=== PATIENT | female | born 1945 | race Caucasian/White ===

== ENCOUNTER 2016-10-08 01:15 | Inpatient (IN) | payer OTHER, BC ==
[~2016-10-08] VITALS: Ht 160 cm; Wt 68.9 kg
[~2016-10-08 01:15] MED LIST: ADVAIR HFA120 INHALA IH; ALBUTEROL2.5 MG/3 M IH; ALDACTONE25 MG PO; AMLODIPINE BESYL5 MG PO; ASPIR 8181 M1 PO; ASPIR-LOW81 MG PO; ASPIRIN E.C.81 M1 PO; AZITHROMYCIN500 M1 PO; Advair HFA 115/21 IH; CARDIZEM CD,CA180 MG PO; CARVEDILOL25 MG PO; CEFTIN500 MG PO; COLACE100 MG PO; COQ-10100 MG PO; COREG25 M1 PO; COREG25 MG PO; COUMADIN,JANTOVE4 MG PO; COUMADIN2 MG PO; COUMADIN3 MG PO; COUMADIN4 MG PO; CRANBERRY300 MG PO; CRANBERRY450 M1 PO; CRANBERRY500 M1 PO; CRANBERRY500 M2 PO; DAILY VALUE1 EACH PO; DIGITEK250 MC2 PO; DIGITEK250 MCG PO; DIGOXIN125 MCG PO; EVISTA60 MG PO; FUROSEMIDE80 MG PO; GLIPIZIDE10 M1 PO; GLIPIZIDE10 MG PO; GLUCOPHAGE1000 MG PO; K-DUR10 MEQ PO; K-DUR20 MEQ PO; LANOXIN,DIGI0.125 MG PO; LANOXIN250 MCG PO; LANTUS 10100 UNITS/ SC; LANTUS 3 M100 UNITS/ SC; LANTUS 3 M100 UNITS1 SC; LASIX80 MG PO; LEVAQUIN500 MG PO; LEVEMIR FL100 UNIT/1 SC; LISINOPRIL40 MG PO; LORAZEPAM0.5 MG PO; METFORMIN HCL1000 MG PO; METRONIDAZOLE500 MG PO; MICRO-K10 ME2 PO; MUCINEX600 MG PO; NEXIUM40 MG PO; NITROSTAT0.4 MG SL; NORVASC5 MG PO; PLAVIX75 MG PO; PREDNISONE20 MG PO; PREDNISONE50 MG PO; PROAIR HFA8.5 GM IH; PROAIR RESPICL90 MCG IH; PROVENTIL,2.5 MG/3 M IH; SIMVASTATIN80 MG PO; SLOW RELEASE I160 MG PO; SPIRIVA RESPIMAT4 GM IH; SPIRONOLACTONE25 MG PO; TYLENOL EXTRA500 MG PO; TYLENOL REGULA325 MG PO; VENTOLIN HFA18 GM IH; WARFARIN SODIUM2 MG PO; WARFARIN SODIUM4 MG PO; ZESTRIL,PRINIVI40 MG PO; ZITHROMAX TRI-500 MG PO; ZOCOR80 M1 PO; ZOCOR80 MG PO
[2016-10-08 01:56] LABS: HEMATOCRIT 35.3 % (36.0-46.0); MCH 24.9 PG (29.0-34.0); MCHC 31.2 G/DL (30.0-36.0); MEAN PLAT.VOLUME 10.2 uM^3 (9.5-12.4); PLATELET COUNT 355 K/uL (156-360); RBC DIS.WIDTH-CV 15.8 % (11.8-14.6); RBC DIS.WIDTH-SD 45.7 % (39-53); RED BLOOD COUNT 4.41 M/uL (3.80-5.20); WHITE BLOOD COUNT 14.3 K/uL (4.1-10.2)
[2016-10-08 02:06] LABS: CHLORIDE 100 mEq/L (99-109); POTASSIUM 3.6 mEq/L (3.7-5.4); SODIUM 137 mEq/L (136-147)
[2016-10-08 02:09] LABS: ANION GAP 11 MEQ/L (2-14)
[2016-10-08 02:12] LABS: GFR ESTIMATE (CALCULATED) 39 mL/min/
[2016-10-08 02:14] LABS: GLUCOSE 324 mg/dL (70-99)
[2016-10-08 02:15] LABS: UREA NITROGEN (BUN) 20 mg/dL (9-23)
[2016-10-08 02:25] LABS: INTER. NORMALIZED RATIO 1.2; PTT 26.1 (25-32)
[2016-10-08 02:34] LABS: TROP-I INTERPRETATION NEGATIVE; TROPONIN-I 0.02 ng/mL (0.0-0.30)
[2016-10-08] MEDS ORDERED: VENTOLIN HFA18 GM IH (03:39)
[2016-10-08] MEDS ORDERED: AUGMENTIN875 MG PO (03:39)
[2016-10-08] MEDS ORDERED: EVISTA60 MG PO (05:34)
[2016-10-08] MEDS ORDERED: ELIQUIS5 MG PO (05:44)
[2016-10-08] MEDS ORDERED: LORAZEPAM0.5 MG PO (05:44)
[2016-10-08] MEDS ORDERED: NASONEX17 GM BOTH NARES (05:44)
[2016-10-08] MEDS ORDERED: CARDIZEM CD,CA120 MG PO (05:45)
[2016-10-08 07:45] VITALS: BP 145/65
[2016-10-08 11:03] VITALS: BP 168/77
[2016-10-08 15:39] VITALS: BP 140/61
[2016-10-08 19:25] VITALS: BP 148/65
[2016-10-08 22:02] LABS: POINT-OF-CARE METER ID UU14162508
[2016-10-08 23:11] VITALS: BP 141/63
[2016-10-09 03:36] VITALS: BP 160/70; BP 173/71
[2016-10-09 06:39] LABS: EOSINOPHIL (%) 0.5 % (0-5); EOSINOPHIL COUNT 0.1 K/uL (0-0.3); HEMATOCRIT 33.1 % (36.0-46.0); IMMATURE GRANULOCYTE (%) 0.6 % (0.0-0.7); IMMATURE GRANULOCYTE COUNT 0.1 K/uL; INSTRUMENT ABS NEUTROPHIL CT 13.8 K/uL; LYMPHOCYTE COUNT 1.5 K/uL (1.0-2.8); MCH 24.7 PG (29.0-34.0); MCHC 30.5 G/DL (30.0-36.0); MCV 80.9 FL (83-99); MEAN PLAT.VOLUME 10.1 uM^3 (9.5-12.4); MONOCYTE (%) 6.5 % (3-12); MONOCYTE COUNT 1.1 K/uL (0-0.8); NEUTROPHIL (%) 83.1 % (45-76); NEUTROPHIL COUNT 13.8 K/uL (1.8-6.4); PLATELET COUNT 390 K/uL (156-360); RBC DIS.WIDTH-CV 16.1 % (11.8-14.6); RBC DIS.WIDTH-SD 47.7 % (39-53); RED BLOOD COUNT 4.09 M/uL (3.80-5.20); WHITE BLOOD COUNT 16.5 K/uL (4.1-10.2)
[2016-10-09 07:04] LABS: ANION GAP 11 MEQ/L (2-14); CHLORIDE 104 MEQ/L (99-109); GFR ESTIMATE (CALCULATED) 58 mL/min/; POTASSIUM 3.6 MEQ/L (3.7-5.4); SAMPLE HEMOLYSIS CHECK 0; SAMPLE ICTERIC CHECK 0; SAMPLE LIPEMIA CHECK 0; SODIUM 142 MEQ/L (136-147); UREA NITROGEN (BUN) 17 mg/dL (9-23)
[2016-10-09 07:05] LABS: GLUCOSE 55 mg/dL (70-99)
[2016-10-09 08:00] VITALS: BP 137/86
[2016-10-09 11:46] VITALS: BP 117/57
[2016-10-09 12:00] LABS: POINT-OF-CARE METER ID UU14162508
[2016-10-09 12:00] LABS: INFLUENZA A VIRAL ANTIGEN NEGATIVE; INFLUENZA B VIRAL ANTIGEN NEGATIVE
[2016-10-09] MEDS ORDERED: DALIRESP500 MCG PO (14:44)
[2016-10-09] MEDS ORDERED: MUCINEX D ER T1 EACH PO (14:45)
[2016-10-09 16:00] VITALS: BP 138/60
[2016-10-09 19:23] VITALS: BP 153/68
[2016-10-09 23:07] VITALS: BP 121/58
[2016-10-10] VITALS (8 sets, daily range): BP systolic 128–198; BP diastolic 60–86
[2016-10-10 06:43] LABS: POINT-OF-CARE METER ID UU14162508
[2016-10-10 07:00] LABS: POINT-OF-CARE METER ID UU14162508
[2016-10-10 07:02] LABS: EOSINOPHIL (%) 0.6 % (0-5); EOSINOPHIL COUNT 0.1 K/uL (0-0.3); HEMATOCRIT 33.6 % (36.0-46.0); IMMATURE GRANULOCYTE (%) 0.6 % (0.0-0.7); IMMATURE GRANULOCYTE COUNT 0.1 K/uL; INSTRUMENT ABS NEUTROPHIL CT 12.2 K/uL; LYMPHOCYTE COUNT 1.6 K/uL (1.0-2.8); MCH 24.8 PG (29.0-34.0); MCHC 30.4 G/DL (30.0-36.0); MCV 81.6 FL (83-99); MEAN PLAT.VOLUME 9.9 uM^3 (9.5-12.4); MONOCYTE (%) 6.1 % (3-12); MONOCYTE COUNT 0.9 K/uL (0-0.8); NEUTROPHIL COUNT 12.2 K/uL (1.8-6.4); PLATELET COUNT 387 K/uL (156-360); RBC DIS.WIDTH-CV 16.2 % (11.8-14.6); RBC DIS.WIDTH-SD 48.4 % (39-53); RED BLOOD COUNT 4.12 M/uL (3.80-5.20); WHITE BLOOD COUNT 14.9 K/uL (4.1-10.2)
[2016-10-10 07:27] LABS: INTERNAL CONTROL VALID? YES
[2016-10-10 07:27] LABS: ANION GAP 8 MEQ/L (2-14); CHLORIDE 103 MEQ/L (99-109); GFR ESTIMATE (CALCULATED) 52 mL/min/; GLUCOSE 63 mg/dL (70-99); POTASSIUM 4.1 MEQ/L (3.7-5.4); SAMPLE HEMOLYSIS CHECK 0; SAMPLE ICTERIC CHECK 0; SAMPLE LIPEMIA CHECK 0; SODIUM 141 MEQ/L (136-147); UREA NITROGEN (BUN) 16 mg/dL (9-23)
[2016-10-10 21:45] LABS: POINT-OF-CARE METER ID UU14162508
[2016-10-11 03:21] VITALS: BP 141/62
[2016-10-11 06:51] LABS: POINT-OF-CARE METER ID UU14162508
[2016-10-11 07:00] LABS: POINT-OF-CARE METER ID UU14162508
[2016-10-11 07:40] VITALS: BP 142/67
[2016-10-11 12:00] VITALS: BP 131/63
[2016-10-11 15:10] VITALS: BP 147/65
[2016-10-11 16:55] LABS: POINT-OF-CARE METER ID UU14162508
[2016-10-11 20:07] VITALS: BP 142/64
[2016-10-12 00:28] VITALS: BP 112/55
[2016-10-12 04:25] VITALS: BP 144/66
[2016-10-12 07:07] LABS: EOSINOPHIL COUNT 0.2 K/uL (0-0.3); HEMATOCRIT 33.6 % (36.0-46.0); IMMATURE GRANULOCYTE (%) 1.1 % (0.0-0.7); IMMATURE GRANULOCYTE COUNT 0.1 K/uL; INSTRUMENT ABS NEUTROPHIL CT 4.8 K/uL; LYMPHOCYTE COUNT 2.4 K/uL (1.0-2.8); MCH 25.5 PG (29.0-34.0); MCHC 31.3 G/DL (30.0-36.0); MCV 81.6 FL (83-99); MEAN PLAT.VOLUME 10.1 uM^3 (9.5-12.4); MONOCYTE (%) 10.6 % (3-12); MONOCYTE COUNT 0.9 K/uL (0-0.8); NEUTROPHIL (%) 57.4 % (45-76); NEUTROPHIL COUNT 4.8 K/uL (1.8-6.4); PLATELET COUNT 399 K/uL (156-360); RBC DIS.WIDTH-CV 16.3 % (11.8-14.6); RBC DIS.WIDTH-SD 48.7 % (39-53); RED BLOOD COUNT 4.12 M/uL (3.80-5.20)
[2016-10-12 07:21] LABS: WHITE BLOOD COUNT 8.4 K/uL (4.1-10.2)
[2016-10-12 07:28] LABS: ANION GAP 10 MEQ/L (2-14); CHLORIDE 99 MEQ/L (99-109); GFR ESTIMATE (CALCULATED) 43 mL/min/; POTASSIUM 4.2 MEQ/L (3.7-5.4); SAMPLE HEMOLYSIS CHECK 0; SAMPLE ICTERIC CHECK 0; SAMPLE LIPEMIA CHECK 0; SODIUM 141 MEQ/L (136-147); UREA NITROGEN (BUN) 14 mg/dL (9-23)
[2016-10-12 07:33] LABS: GLUCOSE 82 mg/dL (70-99)
[2016-10-12 08:00] VITALS: BP 143/67
[2016-10-12 11:20] VITALS: BP 133/63
[2016-10-12 15:50] VITALS: BP 133/61
[2016-10-12] MEDS ORDERED: CEFTIN500 MG PO (18:47)
== END 2016-10-12 20:13 | disposition home or self-care (01) | DRG 195 ==
LOC: EME 01:15 → 2EASTP 05:49 → EDOF 05:49 → 2EASTP 07:51
PROVIDERS: Family Medicine Sports Medicine; Internal Medicine Pulmonary Disease
DX: J18.1 Lobar pneumonia, unspecified organism (principal); J20.9 Acute bronchitis, unspecified; I50.9 Heart failure, unspecified; I48.0 Paroxysmal atrial fibrillation; I25.5 Ischemic cardiomyopathy; E87.6 Hypokalemia; I65.29 Occlusion and stenosis of unspecified carotid artery; R09.02 Hypoxemia; I25.10 Atherosclerotic heart disease of native coronary artery without angina pectoris; I10 Essential (primary) hypertension; E78.5 Hyperlipidemia, unspecified; N28.9 Disorder of kidney and ureter, unspecified; E11.9 Type 2 diabetes mellitus without complications; K76.9 Liver disease, unspecified; F41.9 Anxiety disorder, unspecified; D50.9 Iron deficiency anemia, unspecified; K21.9 Gastro-esophageal reflux disease without esophagitis; J32.9 Chronic sinusitis, unspecified; F32.9 Major depressive disorder, single episode, unspecified; Z79.4 Long term (current) use of insulin; Z86.73 Personal history of transient ischemic attack (TIA), and cerebral infarction without residual deficits; Z95.810 Presence of automatic (implantable) cardiac defibrillator; Z87.891 Personal history of nicotine dependence; Z95.5 Presence of coronary angioplasty implant and graft; Z95.1 Presence of aortocoronary bypass graft
CPT/HCPCS: 36415; 71020; 71250; 80048; 82948; 83036 GA; 83540; 83605; 83880; 84466; 84484; 85025; 85027; 85610; 85730; 87040; 87070; 87106; 87205; 87449; 87502; 93005; 94640; 94640 76; 94760; 94799; 99202; 99281; 99285; J0360; J0456; J0696; J1815; J2405; J7050

== ENCOUNTER 2016-10-25 04:31 | Inpatient (IN) | payer OTHER, BC ==
[~2016-10-25] VITALS: Ht 160 cm; Wt 68.0 kg
[~2016-10-25 04:31] MED LIST changes: +AUGMENTIN875 MG PO; +CARDIZEM CD,CA120 MG PO; +DALIRESP500 MCG PO; +ELIQUIS5 MG PO; +MUCINEX D ER T1 EACH PO; +NASONEX17 GM BOTH NARES
[2016-10-25 05:01] LABS: HEMATOCRIT 32.4 % (36.0-46.0); MCH 25.6 PG (29.0-34.0); MCHC 31.5 G/DL (30.0-36.0); MCV 81.2 FL (83-99); RBC DIS.WIDTH-CV 15.7 % (11.8-14.6); RBC DIS.WIDTH-SD 46.2 % (39-53); RED BLOOD COUNT 3.99 M/uL (3.80-5.20)
[2016-10-25 05:09] LABS: CHLORIDE 107 mEq/L (99-109); POTASSIUM 3.5 mEq/L (3.7-5.4); SODIUM 142 mEq/L (136-147)
[2016-10-25 05:10] LABS: GLUCOSE 164 mg/dL (70-99)
[2016-10-25 05:12] LABS: ANION GAP 13 MEQ/L (2-14)
[2016-10-25 05:14] LABS: GFR ESTIMATE (CALCULATED) 52 mL/min/
[2016-10-25 05:15] LABS: UREA NITROGEN (BUN) 10 mg/dL (9-23)
[2016-10-25 05:20] LABS: TROP-I INTERPRETATION NEGATIVE; TROPONIN-I 0.03 ng/mL (0.0-0.30)
[2016-10-25 05:26] LABS: INTER. NORMALIZED RATIO 1.3; PROTHROMBIN TIME 13.5 (9.2-11.2); PTT 33.1 (25-32)
[2016-10-25 05:53] LABS: WHITE BLOOD COUNT 13.3 K/uL (4.1-10.2)
[2016-10-25 06:16] LABS: MEAN PLAT.VOLUME 10.7 uM^3 (9.5-12.4); PLAT.SUFFICIENCY ADEQUATE; PLATELET COUNT 272 K/uL (156-360)
[2016-10-25] MEDS ORDERED: MUCINEX1200 MG PO (07:50)
[2016-10-25 10:03] VITALS: BP 180/79
[2016-10-25 10:44] LABS: IRON 17 MCG/DL (35-150)
[2016-10-25 11:01] LABS: FERRITIN 52 NG/ML (10-291)
[2016-10-25 12:12] LABS: POINT-OF-CARE METER ID UU14162513
[2016-10-25 12:35] LABS: TROP-I INTERPRETATION NEGATIVE; TROPONIN-I 0.05 ng/mL (0.0-0.30)
[2016-10-25 15:09] VITALS: BP 133/60
[2016-10-25 17:09] LABS: POINT-OF-CARE METER ID UU14162513
[2016-10-25 17:31] LABS: TROP-I INTERPRETATION NEGATIVE; TROPONIN-I 0.03 ng/mL (0.0-0.30)
[2016-10-25 20:00] VITALS: BP 129/80
[2016-10-25 21:57] LABS: POINT-OF-CARE METER ID UU13113700
[2016-10-25 23:32] VITALS: BP 150/66
[2016-10-26 03:02] VITALS: BP 175/72
[2016-10-26 07:17] VITALS: BP 141/86
[2016-10-26 08:20] LABS: ANION GAP 12 MEQ/L (2-14); CHLORIDE 105 MEQ/L (99-109); GFR ESTIMATE (CALCULATED) 47 mL/min/; SAMPLE HEMOLYSIS CHECK 0; SAMPLE ICTERIC CHECK 0; SAMPLE LIPEMIA CHECK 0; SODIUM 142 MEQ/L (136-147); UREA NITROGEN (BUN) 15 mg/dL (9-23)
[2016-10-26 08:23] LABS: GLUCOSE 39 mg/dL (70-99); POTASSIUM 4.4 MEQ/L (3.7-5.4)
[2016-10-26 10:52] LABS: HEMATOCRIT 32.7 % (36.0-46.0); MCH 25.5 PG (29.0-34.0); MCHC 30.9 G/DL (30.0-36.0); MCV 82.6 FL (83-99); MEAN PLAT.VOLUME 10.8 uM^3 (9.5-12.4); NRBC (%) 0.3 /100 WBC (0-0); PLATELET COUNT 271 K/uL (156-360); RBC DIS.WIDTH-CV 15.9 % (11.8-14.6); RBC DIS.WIDTH-SD 47.2 % (39-53); RED BLOOD COUNT 3.96 M/uL (3.80-5.20); WHITE BLOOD COUNT 6.5 K/uL (4.1-10.2)
[2016-10-26 10:56] LABS: CHLORIDE 106 mEq/L (99-109); POTASSIUM 4.4 mEq/L (3.7-5.4); SODIUM 144 mEq/L (136-147)
[2016-10-26 10:59] LABS: ANION GAP 15 MEQ/L (2-14)
[2016-10-26 11:01] LABS: GFR ESTIMATE (CALCULATED) 52 mL/min/
[2016-10-26 11:18] VITALS: BP 170/73
[2016-10-26 11:30] LABS: GLUCOSE 119 mg/dL (70-99)
[2016-10-26 11:44] LABS: UREA NITROGEN (BUN) 15 mg/dL (9-23)
[2016-10-26 16:05] VITALS: BP 132/60
[2016-10-26 18:19] VITALS: BP 142/62
[2016-10-26 23:18] VITALS: BP 139/68
[2016-10-27 03:54] VITALS: BP 182/72
[2016-10-27 07:32] VITALS: BP 164/72
[2016-10-27 11:32] VITALS: BP 147/67
[2016-10-27 15:19] VITALS: BP 145/65
== END 2016-10-27 19:16 | disposition home or self-care (01) | DRG 293 ==
LOC: EME → EDBD 04:31 → 5WEST 09:10 → EDOF 09:10 → 5WEST 09:56 → 5SOUTH 10-26 12:55
PROVIDERS: Emergency Medicine; Family Medicine Sports Medicine; Hospitalist; Internal Medicine; Physician Assistant
DX: I11.0 Hypertensive heart disease with heart failure (principal); I50.23 Acute on chronic systolic (congestive) heart failure; J44.9 Chronic obstructive pulmonary disease, unspecified; I48.2 Chronic atrial fibrillation; Z79.01 Long term (current) use of anticoagulants; I25.10 Atherosclerotic heart disease of native coronary artery without angina pectoris; Z95.1 Presence of aortocoronary bypass graft; Z95.810 Presence of automatic (implantable) cardiac defibrillator; E11.9 Type 2 diabetes mellitus without complications; Z79.4 Long term (current) use of insulin; E78.5 Hyperlipidemia, unspecified; E87.6 Hypokalemia; D50.9 Iron deficiency anemia, unspecified; I25.2 Old myocardial infarction; I25.5 Ischemic cardiomyopathy; N28.9 Disorder of kidney and ureter, unspecified; R09.02 Hypoxemia
CPT/HCPCS: 71020; 71250; 80048; 80048 91; 80162; 82607; 82728; 82746; 82948; 83540; 83880; 84466; 84484; 85027; 85610; 85730; 87040; 93005; 94640; 94640 76; 99202; 99281; 99284; G0378; J1815; J1940; J7050; Q0138

== ENCOUNTER 2016-11-15 11:53 | Emergency (ER) | payer OTHER, BC ==
[~2016-11-15] VITALS: Ht 160 cm; Wt 65.6 kg
[~2016-11-15 11:53] MED LIST changes: +MUCINEX1200 MG PO
[2016-11-15 14:53] LABS: HEMATOCRIT 38.3 % (36.0-46.0); MCH 26.4 PG (29.0-34.0); MCHC 31.3 G/DL (30.0-36.0); MCV 84.2 FL (83-99); MEAN PLAT.VOLUME 10.2 uM^3 (9.5-12.4); PLATELET COUNT 320 K/uL (156-360); RBC DIS.WIDTH-CV 16.7 % (11.8-14.6); RBC DIS.WIDTH-SD 51.8 % (39-53); RED BLOOD COUNT 4.55 M/uL (3.80-5.20); WHITE BLOOD COUNT 9.6 K/uL (4.1-10.2)
[2016-11-15 15:00] LABS: CHLORIDE 101 mEq/L (99-109); SODIUM 141 mEq/L (136-147)
[2016-11-15 15:03] LABS: ANION GAP 14 MEQ/L (2-14)
[2016-11-15 15:06] LABS: GFR ESTIMATE (CALCULATED) 47 mL/min/
[2016-11-15 15:07] LABS: UREA NITROGEN (BUN) 14 mg/dL (9-23)
[2016-11-15 15:13] LABS: INTER. NORMALIZED RATIO 1.2; PTT 25.8 (25-32)
[2016-11-15 15:22] LABS: GLUCOSE 215 mg/dL (70-99)
[2016-11-15 15:37] VITALS: BP 131/75
== END 2016-11-15 15:38 | disposition home or self-care (01) ==
LOC: EME 11:53
PROVIDERS: Physician Assistant
DX: I74.5 Embolism and thrombosis of iliac artery (principal); I48.91 Unspecified atrial fibrillation; Z79.01 Long term (current) use of anticoagulants; I25.10 Atherosclerotic heart disease of native coronary artery without angina pectoris; I25.2 Old myocardial infarction; I11.0 Hypertensive heart disease with heart failure; I50.9 Heart failure, unspecified; E11.9 Type 2 diabetes mellitus without complications; J44.9 Chronic obstructive pulmonary disease, unspecified; K21.9 Gastro-esophageal reflux disease without esophagitis; F32.9 Major depressive disorder, single episode, unspecified; E78.5 Hyperlipidemia, unspecified; Z95.1 Presence of aortocoronary bypass graft; Z95.810 Presence of automatic (implantable) cardiac defibrillator; Z87.891 Personal history of nicotine dependence; Z79.4 Long term (current) use of insulin; Z79.02 Long term (current) use of antithrombotics/antiplatelets; Z95.5 Presence of coronary angioplasty implant and graft
CPT/HCPCS: 80048; 85027; 85610; 85730; 99281; 99285

== ENCOUNTER 2016-11-20 13:27 | Emergency (ER) | payer OTHER, BC ==
[~2016-11-20] VITALS: Ht 162.6 cm; Wt 66.9 kg
[2016-11-20 14:29] LABS: HEMATOCRIT 33.6 % (36.0-46.0); MCH 26.2 PG (29.0-34.0); MCHC 31.5 G/DL (30.0-36.0); MCV 83.2 FL (83-99); MEAN PLAT.VOLUME 9.8 uM^3 (9.5-12.4); PLATELET COUNT 257 K/uL (156-360); RBC DIS.WIDTH-CV 15.8 % (11.8-14.6); RBC DIS.WIDTH-SD 47.9 % (39-53); RED BLOOD COUNT 4.04 M/uL (3.80-5.20); WHITE BLOOD COUNT 7.6 K/uL (4.1-10.2)
[2016-11-20 14:40] LABS: CHLORIDE 104 mEq/L (99-109); POTASSIUM 2.9 mEq/L (3.7-5.4); SODIUM 143 mEq/L (136-147)
[2016-11-20 14:42] LABS: GLUCOSE 171 mg/dL (70-99)
[2016-11-20 14:44] LABS: ANION GAP 11 MEQ/L (2-14); TOTAL BILIRUBIN 0.3 mg/dL (0.0-1.0)
[2016-11-20 14:46] LABS: ALKALINE PHOSPHATASE 55 IU/L (3-129); GFR ESTIMATE (CALCULATED) 52 mL/min/
[2016-11-20 14:47] LABS: UREA NITROGEN (BUN) 8 mg/dL (9-23)
[2016-11-20 15:46] VITALS: BP 163/52
== END 2016-11-20 15:48 | disposition home or self-care (01) ==
LOC: EME 13:27
PROVIDERS: Nurse Practitioner Family
DX: I97.618 Postprocedural hemorrhage of a circulatory system organ or structure following other circulatory system procedure (principal); Z79.01 Long term (current) use of anticoagulants; Z79.02 Long term (current) use of antithrombotics/antiplatelets; I10 Essential (primary) hypertension; E78.5 Hyperlipidemia, unspecified; E11.9 Type 2 diabetes mellitus without complications; Z79.4 Long term (current) use of insulin; J44.9 Chronic obstructive pulmonary disease, unspecified; Z95.1 Presence of aortocoronary bypass graft; Z87.891 Personal history of nicotine dependence
CPT/HCPCS: 80053; 85027; 99281; 99285

== ENCOUNTER 2016-11-27 08:29 | Inpatient (IN) | payer OTHER, BC ==
[~2016-11-27] VITALS: Ht 160 cm; Wt 69.7 kg
[2016-11-27] VITALS (9 sets, daily range): BP systolic 133–177; BP diastolic 37–76
[2016-11-27 09:06] LABS: POINT-OF-CARE METER ID UU13113694
[2016-11-27] MEDS ORDERED: KLOR-CON M2020 MEQ PO (09:43)
[2016-11-27] MEDS ORDERED: CILOSTAZOL100 MG PO (09:44)
[2016-11-27 14:23] LABS: POINT-OF-CARE METER ID UU13113675; POINT-OF-CARE USER ID 515036437
[2016-11-27 14:56] LABS: HEMATOCRIT 29.9 % (36.0-46.0); MCHC 32.1 G/DL (30.0-36.0); MCV 84.2 FL (83-99); MEAN PLAT.VOLUME 9.7 uM^3 (9.5-12.4); PLATELET COUNT 295 K/uL (156-360); RBC DIS.WIDTH-CV 15.6 % (11.8-14.6); RBC DIS.WIDTH-SD 47.6 % (39-53); RED BLOOD COUNT 3.55 M/uL (3.80-5.20); WHITE BLOOD COUNT 7.7 K/uL (4.1-10.2)
[2016-11-27 15:18] LABS: TROP-I INTERPRETATION NEGATIVE; TROPONIN-I 0.04 ng/mL (0.0-0.30)
[2016-11-27 15:22] LABS: ANION GAP 10 MEQ/L (2-14); CHLORIDE 101 MEQ/L (99-109); GFR ESTIMATE (CALCULATED) > 59 mL/min/; GLUCOSE 193 mg/dL (70-99); SAMPLE HEMOLYSIS CHECK 0; SAMPLE ICTERIC CHECK 0; SAMPLE LIPEMIA CHECK 0; SODIUM 139 MEQ/L (136-147); UREA NITROGEN (BUN) 7 mg/dL (9-23)
[2016-11-27 17:06] LABS: METH RESISTANT S AUREUS PCR NEGATIVE (NEGATIVE)
[2016-11-27 17:07] LABS: PROBE CHECK PASS; SPECIMEN PROCESSING CONTROL PASS
[2016-11-27 22:23] LABS: POINT-OF-CARE METER ID UU14162636
[2016-11-28] VITALS (7 sets, daily range): BP systolic 107–151; BP diastolic 53–67
[2016-11-28 06:47] LABS: HEMATOCRIT 28.5 % (36.0-46.0); MCH 26.9 PG (29.0-34.0); MCHC 31.6 G/DL (30.0-36.0); MCV 85.1 FL (83-99); MEAN PLAT.VOLUME 9.9 uM^3 (9.5-12.4); PLATELET COUNT 272 K/uL (156-360); RBC DIS.WIDTH-CV 15.7 % (11.8-14.6); RBC DIS.WIDTH-SD 48.5 % (39-53); RED BLOOD COUNT 3.35 M/uL (3.80-5.20); WHITE BLOOD COUNT 7.8 K/uL (4.1-10.2)
[2016-11-28 07:13] LABS: ANION GAP 10 MEQ/L (2-14); CHLORIDE 99 MEQ/L (99-109); GFR ESTIMATE (CALCULATED) 58 mL/min/; GLUCOSE 138 mg/dL (70-99); SAMPLE HEMOLYSIS CHECK 0; SAMPLE ICTERIC CHECK 0; SAMPLE LIPEMIA CHECK 0; SODIUM 141 MEQ/L (136-147); UREA NITROGEN (BUN) 8 mg/dL (9-23)
[2016-11-28 07:22] LABS: POTASSIUM 3.8 MEQ/L (3.7-5.4)
[2016-11-28 07:23] LABS: TROP-I INTERPRETATION NEGATIVE; TROPONIN-I 0.04 ng/mL (0.0-0.30)
[2016-11-28 11:41] LABS: POINT-OF-CARE METER ID UU14188577
[2016-11-28 17:09] LABS: POINT-OF-CARE METER ID UU14149397
[2016-11-29 03:34] VITALS: BP 120/59
[2016-11-29 06:54] LABS: ANION GAP 10 MEQ/L (2-14); CHLORIDE 98 MEQ/L (99-109); GFR ESTIMATE (CALCULATED) 52 mL/min/; GLUCOSE 134 mg/dL (70-99); POTASSIUM 3.3 MEQ/L (3.7-5.4); SAMPLE HEMOLYSIS CHECK 0; SAMPLE ICTERIC CHECK 0; SAMPLE LIPEMIA CHECK 0; SODIUM 138 MEQ/L (136-147); UREA NITROGEN (BUN) 13 mg/dL (9-23)
[2016-11-29 07:43] VITALS: BP 148/63
[2016-11-29 11:27] LABS: POINT-OF-CARE METER ID UU14188577
[2016-11-29 11:35] VITALS: BP 121/55
[2016-11-29 15:08] VITALS: BP 130/59
[2016-11-29 19:26] VITALS: BP 106/53
[2016-11-29 21:26] LABS: POINT-OF-CARE METER ID UU14188577
[2016-11-30 00:19] VITALS: BP 129/55
[2016-11-30 05:24] VITALS: BP 120/57
[2016-11-30 06:43] LABS: POINT-OF-CARE METER ID UU14188577
[2016-11-30 08:02] VITALS: BP 173/70
[2016-11-30 11:58] VITALS: BP 114/54
[2016-11-30 16:35] VITALS: BP 152/63
[2016-11-30 19:50] VITALS: BP 159/67
[2016-11-30 22:03] LABS: POINT-OF-CARE METER ID UU14188577
[2016-12-01 00:14] VITALS: BP 151/62
[2016-12-01 04:14] VITALS: BP 121/50
[2016-12-01 07:16] VITALS: BP 182/77
[2016-12-01] MEDS ORDERED: HYDROCODON-ACE1 EAC7 PO (09:04)
[2016-12-01 11:41] VITALS: BP 132/74
== END 2016-12-01 13:53 | disposition home or self-care (01) | DRG 253 ==
LOC: 2SOUTH 08:29 → 3EAST 08:29 → 2SOUTH 10:16 → 4WEST 15:49 → 3EAST 23:40
PROVIDERS: Surgery
PROC: 041L0JJ Bypass Left Femoral Artery to Left Femoral Artery with Synthetic Substitute, Open Approach (ICD-10-PCS; principal; 2016-11-27)
PROC: 04703DZ Dilation of Abdominal Aorta with Intraluminal Device, Percutaneous Approach (ICD-10-PCS; principal; 2016-11-27)
DX: I70.222 Atherosclerosis of native arteries of extremities with rest pain, left leg (principal); I70.0 Atherosclerosis of aorta; I47.2 Ventricular tachycardia; I25.5 Ischemic cardiomyopathy; I42.0 Dilated cardiomyopathy; I11.0 Hypertensive heart disease with heart failure; I50.9 Heart failure, unspecified; E11.51 Type 2 diabetes mellitus with diabetic peripheral angiopathy without gangrene; I48.1 Persistent atrial fibrillation; E78.5 Hyperlipidemia, unspecified; I25.10 Atherosclerotic heart disease of native coronary artery without angina pectoris; J44.9 Chronic obstructive pulmonary disease, unspecified; K21.9 Gastro-esophageal reflux disease without esophagitis; Z95.810 Presence of automatic (implantable) cardiac defibrillator; Z95.1 Presence of aortocoronary bypass graft; Z98.61 Coronary angioplasty status; Z87.891 Personal history of nicotine dependence; Z79.84 Long term (current) use of oral hypoglycemic drugs
CPT/HCPCS: 80048; 82565; 82948; 84484; 84520; 85027; 86900; 86901; 87641; 93005; 94640; 94640 76; 94760; 94799; 97530 GO; 97530 GP; 99202; C1725; C1750; C1769; C1894; J0330; J0690; J1644; J1815; J2405; J2720; J3010; J7120

== ENCOUNTER 2017-02-04 04:31 | Observation (INO) | payer OTHER, BC ==
[~2017-02-04] VITALS: Ht 160 cm; Wt 63.5 kg
[~2017-02-04 04:31] MED LIST changes: +CILOSTAZOL100 MG PO; +HYDROCODON-ACE1 EAC7 PO; +KLOR-CON M2020 MEQ PO
[2017-02-04 05:46] LABS: HEMATOCRIT 31.1 % (36.0-46.0); MCH 23.8 PG (29.0-34.0); MCHC 30.5 G/DL (30.0-36.0); MCV 77.8 FL (83-99); MEAN PLAT.VOLUME 9.6 uM^3 (9.5-12.4); PLATELET COUNT 329 K/uL (156-360); RBC DIS.WIDTH-CV 14.4 % (11.8-14.6); RBC DIS.WIDTH-SD 40.1 % (39-53); WHITE BLOOD COUNT 10.4 K/uL (4.1-10.2)
[2017-02-04 06:05] LABS: CHLORIDE 101 mEq/L (99-109); POTASSIUM 2.6 mEq/L (3.7-5.4); SODIUM 141 mEq/L (136-147)
[2017-02-04 06:06] LABS: MAGNESIUM 1.7 mg/dL (1.3-2.7)
[2017-02-04 06:07] LABS: GLUCOSE 67 mg/dL (70-99)
[2017-02-04 06:09] LABS: ANION GAP 13 MEQ/L (2-14)
[2017-02-04 06:11] LABS: GFR ESTIMATE (CALCULATED) 52 mL/min/
[2017-02-04 06:12] LABS: UREA NITROGEN (BUN) 9 mg/dL (9-23)
[2017-02-04 06:19] LABS: TROP-I INTERPRETATION NEGATIVE; TROPONIN-I 0.09 ng/mL (0.0-0.30)
[2017-02-04 09:03] LABS: POINT-OF-CARE METER ID UU13113702
[2017-02-04 09:14] VITALS: BP 189/78
[2017-02-04 11:58] LABS: TROP-I INTERPRETATION NEGATIVE; TROPONIN-I 0.07 ng/mL (0.0-0.30)
[2017-02-04 19:53] VITALS: BP 138/62
[2017-02-04 21:48] LABS: POINT-OF-CARE METER ID UU14162513
[2017-02-04 23:45] VITALS: BP 95/45
[2017-02-05 00:20] VITALS: BP 99/47
[2017-02-05 04:17] VITALS: BP 146/69
[2017-02-05 05:09] LABS: POINT-OF-CARE METER ID UU13113831
[2017-02-05 05:44] LABS: GLUCOSE 246 mg/dL (70-99)
[2017-02-05 05:49] LABS: HEMATOCRIT 28.6 % (36.0-46.0); MCH 23.5 PG (29.0-34.0); MCHC 29.7 G/DL (30.0-36.0); PLATELET COUNT 337 K/uL (156-360); RBC DIS.WIDTH-CV 14.6 % (11.8-14.6); RBC DIS.WIDTH-SD 42.3 % (39-53); RED BLOOD COUNT 3.62 M/uL (3.80-5.20); WHITE BLOOD COUNT 10.2 K/uL (4.1-10.2)
[2017-02-05 06:10] LABS: ANION GAP 10 MEQ/L (2-14); CHLORIDE 102 MEQ/L (99-109); GFR ESTIMATE (CALCULATED) 47 mL/min/; SAMPLE HEMOLYSIS CHECK 0; SAMPLE ICTERIC CHECK 0; SAMPLE LIPEMIA CHECK 0; SODIUM 139 MEQ/L (136-147); UREA NITROGEN (BUN) 11 mg/dL (9-23)
[2017-02-05 06:12] LABS: GLUCOSE 231 mg/dL (70-99); POTASSIUM 3.5 MEQ/L (3.7-5.4)
[2017-02-05 08:15] VITALS: BP 147/67
[2017-02-05 08:28] LABS: POINT-OF-CARE METER ID UU13113831
[2017-02-05 09:27] LABS: TROP-I INTERPRETATION NEGATIVE; TROPONIN-I 0.07 ng/mL (0.0-0.30)
[2017-02-05 12:58] LABS: POINT-OF-CARE METER ID UU13113700
[2017-02-05 16:56] LABS: POINT-OF-CARE METER ID UU13113831
== END 2017-02-05 15:06 | disposition home or self-care (01) ==
LOC: EME → EDBD 04:31 → EME 04:31 → EDOF 08:15 → ENRESERV 08:16 → 5WEST 09:09
PROVIDERS: Hospitalist
DX: R53.1 Weakness (principal); I48.2 Chronic atrial fibrillation; I11.0 Hypertensive heart disease with heart failure; I50.9 Heart failure, unspecified; I25.10 Atherosclerotic heart disease of native coronary artery without angina pectoris; Z95.1 Presence of aortocoronary bypass graft; Z95.5 Presence of coronary angioplasty implant and graft; E78.5 Hyperlipidemia, unspecified; E11.9 Type 2 diabetes mellitus without complications; Z79.4 Long term (current) use of insulin; E87.6 Hypokalemia; I25.5 Ischemic cardiomyopathy; I73.9 Peripheral vascular disease, unspecified; Z95.820 Peripheral vascular angioplasty status with implants and grafts; Z95.810 Presence of automatic (implantable) cardiac defibrillator; I65.29 Occlusion and stenosis of unspecified carotid artery; Z98.890 Other specified postprocedural states; Z79.01 Long term (current) use of anticoagulants; J81.1 Chronic pulmonary edema; Z86.73 Personal history of transient ischemic attack (TIA), and cerebral infarction without residual deficits; Z82.49 Family history of ischemic heart disease and other diseases of the circulatory system
CPT/HCPCS: 71020; 80048; 82948; 83735; 84443; 84484; 84999; 85027; 93005; 94640; 94640 76; 94760; 99202; 99281; 99285; G0378; J3480

== ENCOUNTER 2017-02-08 08:00 | Inpatient (IN) | payer OTHER, BC ==
[~2017-02-08] VITALS: Ht 160 cm; Wt 61.9 kg
[~2017-02-08 08:00] MED LIST changes: -CARVEDILOL25 MG PO; +COREG12.5 M1 PO
[2017-02-08 08:40] LABS: BASOPHIL COUNT 0.1 K/uL (0-0.1); EOSINOPHIL (%) 0.6 % (0-5); EOSINOPHIL COUNT 0.1 K/uL (0-0.3); HEMATOCRIT 34.8 % (36.0-46.0); IMMATURE GRANULOCYTE (%) 0.5 % (0.0-0.7); IMMATURE GRANULOCYTE COUNT 0.1 K/uL; INSTRUMENT ABS NEUTROPHIL CT 12.2 K/uL; LYMPHOCYTE COUNT 2.3 K/uL (1.0-2.8); MCH 23.5 PG (29.0-34.0); MCHC 29.9 G/DL (30.0-36.0); MCV 78.7 FL (83-99); MEAN PLAT.VOLUME 9.8 uM^3 (9.5-12.4); MONOCYTE (%) 6.2 % (3-12); NEUTROPHIL (%) 77.9 % (45-76); NEUTROPHIL COUNT 12.2 K/uL (1.8-6.4); RBC DIS.WIDTH-CV 14.9 % (11.8-14.6); RBC DIS.WIDTH-SD 42.4 % (39-53); WHITE BLOOD COUNT 15.7 K/uL (4.1-10.2)
[2017-02-08 08:41] LABS: PLATELET COUNT 460 K/uL (156-360); RED BLOOD COUNT 4.42 M/uL (3.80-5.20)
[2017-02-08 08:48] LABS: CHLORIDE 104 mEq/L (99-109); POTASSIUM 3.7 mEq/L (3.7-5.4); SODIUM 140 mEq/L (136-147)
[2017-02-08 08:50] LABS: GLUCOSE 169 mg/dL (70-99)
[2017-02-08 08:51] LABS: ANION GAP 13 MEQ/L (2-14)
[2017-02-08 08:52] LABS: TOTAL BILIRUBIN 0.4 mg/dL (0.0-1.0)
[2017-02-08 08:54] LABS: ALKALINE PHOSPHATASE 81 IU/L (3-129); GFR ESTIMATE (CALCULATED) 47 mL/min/
[2017-02-08 08:55] LABS: UREA NITROGEN (BUN) 15 mg/dL (9-23)
[2017-02-08 08:57] LABS: TROP-I INTERPRETATION NEGATIVE; TROPONIN-I 0.07 ng/mL (0.0-0.30)
[2017-02-08 09:03] LABS: DIGOXIN 1.2 ng/mL (0.8-2.0)
[2017-02-08] MEDS ORDERED: DALIRESP500 MCG PO (12:47)
[2017-02-08] MEDS ORDERED: FLONASE16 G1 BOTH NARES (12:48)
[2017-02-08 14:14] LABS: POINT-OF-CARE METER ID UU13113747
[2017-02-08 16:15] VITALS: BP 185/89
[2017-02-08 18:54] LABS: TROP-I INTERPRETATION NEGATIVE; TROPONIN-I 0.13 ng/mL (0.0-0.30)
[2017-02-08 19:50] VITALS: BP 127/61
[2017-02-08 23:00] VITALS: BP 134/68
[2017-02-09 01:49] LABS: TROP-I INTERPRETATION NEGATIVE; TROPONIN-I 0.16 ng/mL (0.0-0.30)
[2017-02-09 04:06] VITALS: BP 176/84
[2017-02-09 07:05] VITALS: BP 182/89
[2017-02-09 07:08] LABS: POINT-OF-CARE METER ID UU13113698
[2017-02-09 11:52] LABS: POINT-OF-CARE METER ID UU13113698; POINT-OF-CARE USER ID NUTSLF44
[2017-02-09 12:00] VITALS: BP 162/72
[2017-02-09 16:00] VITALS: BP 138/72
[2017-02-09 19:33] VITALS: BP 113/51
[2017-02-09 22:11] LABS: POINT-OF-CARE METER ID UU13113698
[2017-02-10 00:05] VITALS: BP 112/57
[2017-02-10 04:27] VITALS: BP 119/58
[2017-02-10 08:58] VITALS: BP 166/69
[2017-02-10 10:13] LABS: ANION GAP 11 MEQ/L (2-14); CHLORIDE 103 MEQ/L (99-109); SAMPLE HEMOLYSIS CHECK 0; SAMPLE ICTERIC CHECK 0; SAMPLE LIPEMIA CHECK 0; SODIUM 142 MEQ/L (136-147)
[2017-02-10 10:22] LABS: GFR ESTIMATE (CALCULATED) 52 mL/min/; UREA NITROGEN (BUN) 18 mg/dL (9-23)
[2017-02-10 10:24] LABS: GLUCOSE 95 mg/dL (70-99)
[2017-02-10 11:44] VITALS: BP 121/56
[2017-02-10 13:25] LABS: C DIFF TOXIN NEGATIVE (NEGATIVE)
[2017-02-10 13:27] LABS: PROBE CHECK PASS; SPECIMEN PROCESSING CONTROL PASS
[2017-02-10 16:06] VITALS: BP 112/56
[2017-02-10 19:10] VITALS: BP 107/53
[2017-02-10 20:51] LABS: POINT-OF-CARE METER ID UU14174216
[2017-02-11] VITALS: BP 105/50
[2017-02-11 04:07] VITALS: BP 121/57
[2017-02-11 07:45] VITALS: BP 150/68
[2017-02-11 11:47] VITALS: BP 135/60
[2017-02-11 15:26] VITALS: BP 154/57
[2017-02-11] MEDS ORDERED: LOPERAMIDE2 MG PO (16:44)
[2017-02-11] MEDS ORDERED: METOCLOPRAMIDE H5 MG PO (16:45)
== END 2017-02-11 18:00 | disposition home or self-care (01) | DRG 291 ==
LOC: EME 08:00 → 4EAST 14:20 → EDOF 14:20 → ENRESERV 14:35 → EDOF 15:21 → 4EAST 16:36
PROVIDERS: Emergency Medicine; Family Medicine Sports Medicine
DX: I13.0 Hypertensive heart and chronic kidney disease with heart failure and stage 1 through stage 4 chronic kidney disease, or unspecified chronic kidney disease (principal); I50.23 Acute on chronic systolic (congestive) heart failure; E87.6 Hypokalemia; I48.2 Chronic atrial fibrillation; I25.5 Ischemic cardiomyopathy; E11.22 Type 2 diabetes mellitus with diabetic chronic kidney disease; N18.9 Chronic kidney disease, unspecified; I70.222 Atherosclerosis of native arteries of extremities with rest pain, left leg; E11.43 Type 2 diabetes mellitus with diabetic autonomic (poly)neuropathy; K31.84 Gastroparesis; E78.5 Hyperlipidemia, unspecified; D50.9 Iron deficiency anemia, unspecified; J44.9 Chronic obstructive pulmonary disease, unspecified; R09.02 Hypoxemia; F41.1 Generalized anxiety disorder; I25.10 Atherosclerotic heart disease of native coronary artery without angina pectoris; K21.9 Gastro-esophageal reflux disease without esophagitis; F32.9 Major depressive disorder, single episode, unspecified; Z86.73 Personal history of transient ischemic attack (TIA), and cerebral infarction without residual deficits; Z95.1 Presence of aortocoronary bypass graft; Z95.810 Presence of automatic (implantable) cardiac defibrillator; I25.2 Old myocardial infarction; Z79.01 Long term (current) use of anticoagulants; Z79.02 Long term (current) use of antithrombotics/antiplatelets; Z79.4 Long term (current) use of insulin; Z87.891 Personal history of nicotine dependence; Z88.2 Allergy status to sulfonamides
CPT/HCPCS: 71010; 80048; 80053; 80162; 82948; 83880; 84484; 85025; 87493; 93005; 93306; 94640; 94640 76; 94799; 99202; J1940

== ENCOUNTER 2017-02-22 13:44 | Emergency (ER) | payer OTHER, BC ==
[~2017-02-22] VITALS: Ht 160 cm; Wt 60.1 kg
[~2017-02-22 13:44] MED LIST changes: +FLONASE16 G1 BOTH NARES; +LOPERAMIDE2 MG PO; +METOCLOPRAMIDE H5 MG PO
[2017-02-22 15:07] LABS: HEMATOCRIT 35.6 % (36.0-46.0); MCH 23.2 PG (29.0-34.0); MCHC 30.3 G/DL (30.0-36.0); MCV 76.6 FL (83-99); MEAN PLAT.VOLUME 9.9 uM^3 (9.5-12.4); PLATELET COUNT 375 K/uL (156-360); RBC DIS.WIDTH-CV 15.8 % (11.8-14.6); RBC DIS.WIDTH-SD 43.4 % (39-53); RED BLOOD COUNT 4.65 M/uL (3.80-5.20); WHITE BLOOD COUNT 7.2 K/uL (4.1-10.2)
[2017-02-22 15:15] LABS: INTER. NORMALIZED RATIO 1.6; PROTHROMBIN TIME 17.5 SEC (10.2-12.9)
[2017-02-22 15:17] LABS: PTT 31.3 SEC (25-37)
[2017-02-22 15:19] LABS: CHLORIDE 103 mEq/L (99-109); POTASSIUM 3.8 mEq/L (3.7-5.4); SODIUM 139 mEq/L (136-147)
[2017-02-22 15:20] LABS: GLUCOSE 188 mg/dL (70-99)
[2017-02-22 15:22] LABS: ANION GAP 14 MEQ/L (2-14)
[2017-02-22 15:24] LABS: GFR ESTIMATE (CALCULATED) 43 mL/min/
[2017-02-22 15:25] LABS: UREA NITROGEN (BUN) 11 mg/dL (9-23)
[2017-02-22 17:27] LABS: ADD MIUA? YES; BILIRUBIN NEGATIVE; BLOOD LARGE; COLOR YELLOW ((YELLOW)); GLUCOSE (STRIP) NEGATIVE; KETONES NEGATIVE; LEUKOCYTES TRACE; NITRITE NEGATIVE; PROTEIN (STRIP) 30; SPECIFIC GRAVITY 1.011 (1.000-1.030); UROBILINOGEN 0.2 MG/DL (0.2-1.0)
[2017-02-22 17:34] LABS: BACTERIA RARE /HPF; EPITHELIAL CELLS 1+ /HPF; HYALINE CASTS 20-30 /LPF; MUCUS TRACE /LPF; RED BLOOD CELLS TNTC /HPF (0-5); UCUL ADDED? YES
[2017-02-22] MEDS ORDERED: KEFLEX500 MG PO (18:14)
[2017-02-22 18:25] VITALS: BP 168/69
== END 2017-02-22 18:39 | disposition home or self-care (01) ==
LOC: EME 13:44
DX: N39.0 Urinary tract infection, site not specified (principal); R31.9 Hematuria, unspecified; E11.9 Type 2 diabetes mellitus without complications; Z79.4 Long term (current) use of insulin; Z79.01 Long term (current) use of anticoagulants; E78.5 Hyperlipidemia, unspecified; I50.9 Heart failure, unspecified; I25.2 Old myocardial infarction; J44.9 Chronic obstructive pulmonary disease, unspecified; K21.9 Gastro-esophageal reflux disease without esophagitis; Z95.1 Presence of aortocoronary bypass graft; Z95.810 Presence of automatic (implantable) cardiac defibrillator; Z88.2 Allergy status to sulfonamides; Z88.8 Allergy status to other drugs, medicaments and biological substances; Z87.891 Personal history of nicotine dependence
CPT/HCPCS: 80048; 81003; 85027; 85610; 85730; 86850; 86900; 86901; 87086; 99281; 99284

== ENCOUNTER → 2017-08-07 | Outpatient (CLI) | payer MEDICARE, BC ==
[~2017-08-07] MED LIST changes: +KEFLEX500 MG PO
== END | disposition home or self-care (01) ==
LOC: CDC 09:38
DX: Z01.810 Encounter for preprocedural cardiovascular examination (principal); I48.91 Unspecified atrial fibrillation; R94.31 Abnormal electrocardiogram [ECG] [EKG]
CPT/HCPCS: 93000

== ENCOUNTER 2017-11-02 02:59 | Inpatient (IN) | payer OTHER, BC ==
[~2017-11-02] VITALS: Ht 160 cm; Wt 73.1 kg
[2017-11-02 03:52] LABS: HEMATOCRIT 38.3 % (36.0-46.0); MCH 26.8 PG (29.0-34.0); MCHC 31.3 G/DL (30.0-36.0); MCV 85.5 FL (83-99); PLATELET COUNT 273 K/uL (156-360); RBC DIS.WIDTH-CV 14.4 % (11.8-14.6); RBC DIS.WIDTH-SD 44.4 % (39-53); RED BLOOD COUNT 4.48 M/uL (3.80-5.20); WHITE BLOOD COUNT 12.7 K/uL (4.1-10.2)
[2017-11-02 03:58] LABS: INTER. NORMALIZED RATIO 1.6
[2017-11-02 04:01] LABS: PTT 27.7 SEC (25-37)
[2017-11-02 04:03] LABS: CHLORIDE 100 mEq/L (99-109); POTASSIUM 4.4 mEq/L (3.7-5.4); SODIUM 137 mEq/L (136-147)
[2017-11-02 04:05] LABS: GLUCOSE 358 mg/dL (70-99); TOTAL PROTEIN 7.2 g/dL (6.4-8.3)
[2017-11-02 04:07] LABS: TOTAL BILIRUBIN 0.6 mg/dL (0.0-1.0)
[2017-11-02 04:09] LABS: ALKALINE PHOSPHATASE 95 IU/L (3-129); CREATININE 1.6 mg/dL (0.6-1.3); GFR ESTIMATE (CALCULATED) 34 mL/min/
[2017-11-02 04:10] LABS: UREA NITROGEN (BUN) 23 mg/dL (9-23)
[2017-11-02 04:11] LABS: AST (GOT) 18 IU/L (2-34)
[2017-11-02 04:12] LABS: ALT (GPT) 13 IU/L (3-49); LIPASE 44 U/L (1.0-51.0)
[2017-11-02 04:14] LABS: TROP-I INTERPRETATION NEGATIVE; TROPONIN-I 0.08 ng/mL (0.0-0.30)
[2017-11-02] MEDS ORDERED: FUROSEMIDE80 MG PO (08:24)
[2017-11-02 09:00] VITALS: BP 177/83
[2017-11-02 11:41] VITALS: BP 145/63
[2017-11-02 13:54] LABS: TROP-I INTERPRETATION NEGATIVE; TROPONIN-I 0.14 ng/mL (0.0-0.30)
[2017-11-02 16:46] VITALS: BP 140/69
[2017-11-02 20:05] VITALS: BP 118/56
[2017-11-02 20:09] LABS: TROP-I INTERPRETATION NEGATIVE; TROPONIN-I 0.14 ng/mL (0.0-0.30)
[2017-11-02 22:50] VITALS: BP 90/42
[2017-11-03 03:59] VITALS: BP 129/54
[2017-11-03 05:13] LABS: BASOPHIL (%) 0.9 % (0-1); BASOPHIL COUNT 0.1 K/uL (0-0.1); EOSINOPHIL (%) 2.6 % (0-5); EOSINOPHIL COUNT 0.2 K/uL (0-0.3); HEMATOCRIT 33.5 % (36.0-46.0); HEMOGLOBIN 10.4 G/DL (11.9-15.5); IMMATURE GRANULOCYTE (%) 0.4 % (0.0-0.7); LYMPHOCYTE (%) 24.8 % (15-42); LYMPHOCYTE COUNT 1.7 K/uL (1.0-2.8); MCH 26.5 PG (29.0-34.0); MCV 85.5 FL (83-99); MONOCYTE (%) 10.8 % (3-12); MONOCYTE COUNT 0.8 K/uL (0-0.8); NEUTROPHIL (%) 60.5 % (45-76); NEUTROPHIL COUNT 4.3 K/uL (1.8-6.4); PLATELET COUNT 266 K/uL (156-360); RBC DIS.WIDTH-CV 14.6 % (11.8-14.6); RBC DIS.WIDTH-SD 45.1 % (39-53); RED BLOOD COUNT 3.92 M/uL (3.80-5.20)
[2017-11-03 05:58] LABS: CHLORIDE 103 MEQ/L (99-109); CREATININE 1.9 MG/DL (0.6-1.3); GFR ESTIMATE (CALCULATED) 28 mL/min/; SODIUM 140 MEQ/L (136-147)
[2017-11-03 06:01] LABS: GLUCOSE 158 mg/dL (70-99); POTASSIUM 3.5 MEQ/L (3.7-5.4); UREA NITROGEN (BUN) 35 mg/dL (9-23)
[2017-11-03 07:49] VITALS: BP 133/61
[2017-11-03 12:03] VITALS: BP 100/50
[2017-11-03 15:10] VITALS: BP 103/58
[2017-11-03 19:36] VITALS: BP 110/49
[2017-11-03 23:42] VITALS: BP 86/39
[2017-11-04 04:00] VITALS: BP 90/41
[2017-11-04 06:17] LABS: CHLORIDE 103 MEQ/L (99-109); GFR ESTIMATE (CALCULATED) 18 mL/min/; GLUCOSE 137 mg/dL (70-99); POTASSIUM 4.1 MEQ/L (3.7-5.4); SODIUM 137 MEQ/L (136-147); UREA NITROGEN (BUN) 51 mg/dL (9-23)
[2017-11-04 06:21] LABS: CREATININE 2.7 MG/DL (0.6-1.3)
[2017-11-04 07:24] VITALS: BP 121/56
[2017-11-04 09:10] VITALS: BP 105/49
[2017-11-04 11:03] VITALS: BP 138/52
[2017-11-04 16:11] VITALS: BP 141/60
[2017-11-04 19:35] VITALS: BP 123/63
[2017-11-05 05:00] VITALS: BP 148/67
[2017-11-05 05:50] LABS: BASOPHIL (%) 0.6 % (0-1); EOSINOPHIL (%) 2.4 % (0-5); EOSINOPHIL COUNT 0.2 K/uL (0-0.3); HEMATOCRIT 31.4 % (36.0-46.0); HEMOGLOBIN 9.9 G/DL (11.9-15.5); IMMATURE GRANULOCYTE (%) 0.4 % (0.0-0.7); LYMPHOCYTE (%) 20.8 % (15-42); LYMPHOCYTE COUNT 1.5 K/uL (1.0-2.8); MCH 26.8 PG (29.0-34.0); MCHC 31.5 G/DL (30.0-36.0); MCV 84.9 FL (83-99); MONOCYTE (%) 9.7 % (3-12); MONOCYTE COUNT 0.7 K/uL (0-0.8); NEUTROPHIL (%) 66.1 % (45-76); NEUTROPHIL COUNT 4.6 K/uL (1.8-6.4); PLATELET COUNT 239 K/uL (156-360); RBC DIS.WIDTH-CV 14.6 % (11.8-14.6); RBC DIS.WIDTH-SD 44.7 % (39-53)
[2017-11-05 06:32] LABS: CHLORIDE 104 MEQ/L (99-109); GFR ESTIMATE (CALCULATED) 25 mL/min/; GLUCOSE 140 mg/dL (70-99); POTASSIUM 4.5 MEQ/L (3.7-5.4); SODIUM 137 MEQ/L (136-147); UREA NITROGEN (BUN) 44 mg/dL (9-23)
[2017-11-05 06:36] LABS: CREATININE 2.1 MG/DL (0.6-1.3)
[2017-11-05 07:59] VITALS: BP 139/63
[2017-11-05 11:51] VITALS: BP 144/64
[2017-11-05 15:52] VITALS: BP 146/66
[2017-11-05] MEDS ORDERED: LASIX80 MG PO (19:33)
== END 2017-11-05 20:16 | disposition home or self-care (01) | DRG 291 ==
LOC: EME → EDBD 02:59 → EDOF 06:40 → 4EAST 06:40 → ENRESERV 06:41 → 4EAST 08:45
PROVIDERS: Emergency Medicine; Family Medicine Sports Medicine; Internal Medicine
DX: I13.0 Hypertensive heart and chronic kidney disease with heart failure and stage 1 through stage 4 chronic kidney disease, or unspecified chronic kidney disease (principal); I50.23 Acute on chronic systolic (congestive) heart failure; I25.10 Atherosclerotic heart disease of native coronary artery without angina pectoris; I48.1 Persistent atrial fibrillation; E78.5 Hyperlipidemia, unspecified; E11.22 Type 2 diabetes mellitus with diabetic chronic kidney disease; N18.9 Chronic kidney disease, unspecified; F41.1 Generalized anxiety disorder; I25.5 Ischemic cardiomyopathy; K21.9 Gastro-esophageal reflux disease without esophagitis; E87.6 Hypokalemia; E11.51 Type 2 diabetes mellitus with diabetic peripheral angiopathy without gangrene; I70.222 Atherosclerosis of native arteries of extremities with rest pain, left leg; D50.9 Iron deficiency anemia, unspecified; J43.9 Emphysema, unspecified; I16.0 Hypertensive urgency; I25.2 Old myocardial infarction; Z95.1 Presence of aortocoronary bypass graft; Z95.5 Presence of coronary angioplasty implant and graft; Z95.810 Presence of automatic (implantable) cardiac defibrillator; Z99.81 Dependence on supplemental oxygen; Z79.82 Long term (current) use of aspirin; Z79.4 Long term (current) use of insulin; Z79.01 Long term (current) use of anticoagulants; Z86.73 Personal history of transient ischemic attack (TIA), and cerebral infarction without residual deficits; Z87.891 Personal history of nicotine dependence; Z82.49 Family history of ischemic heart disease and other diseases of the circulatory system
CPT/HCPCS: 71045; 80048; 80053; 82948; 83605; 83690; 83880; 84484; 85025; 85027; 85610; 85730; 87040; 93005; 94640; 94640 76; 94799; 99202; 99281; 99285; J1815; J1940